=== PATIENT | female | born 1990 | race Asian ===

== ENCOUNTER 2016-11-16 05:52 | Inpatient (IN) | payer OTHER ==
[~2016-11-16] VITALS: Ht 149.9 cm; Wt 69.3 kg
[2016-11-16 06:21] VITALS: BP 125/74; PULSE 80; RESP 18; Ht 149.9 cm; Wt 69.3 kg
[2016-11-16] MEDS ORDERED: FER325 PO (06:25)
[2016-11-16] MEDS ORDERED: PREN1TAB13 PO (06:26)
[2016-11-16] MEDS ORDERED: OXYTOCIN 30 UNITS/LR 500 ML IV PRN ×3 (06:30→22:00)
[2016-11-16] MEDS ORDERED: OXYTOCIN 30 UNITS/LR 500 ML IV SCH ×3 (06:30→16:30)
[2016-11-16] MEDS ORDERED: CARBOPROST 250 MCG INJ IM PRN ×3 (06:30→22:00)
[2016-11-16] MEDS ORDERED: MISOPROSTOL 200 MCG TAB PR PRN ×3 (06:30→22:00)
[2016-11-16] MEDS ORDERED: ACETAMINOPHEN/CODEINE #3 TAB PO PRN (06:30)
[2016-11-16] MEDS ORDERED: IBUPROFEN 600 MG TAB PO PRN (06:30)
[2016-11-16] MEDS ORDERED: AMPICILLIN 2 GM/NS (PMX) 100 ML IV ONE (06:30)
[2016-11-16] MEDS ORDERED: METHYLERGONOVINE 0.2 MG INJ IM PRN ×3 (06:30→22:00)
[2016-11-16] MEDS ORDERED: BUTORPHANOL 2 MG INJ IV PRN (06:30)
[2016-11-16] MEDS ORDERED: LIDOCAINE 1% (MPF) 30 ML INJ INJ PRN (06:30)
[2016-11-16] MEDS ORDERED: LACTATED RINGER'S 1,000 ML IV PRN (07:00)
--- NOTE | 2016-11-16 07:35 | TRIAGE ---
OB Triage Datetime Report Generated by CPN: 11/16/2016 07:35 Datetime: 11/16/2016 07:14 Assessment Type: Admission Assessment Vaginal Bleeding: None Maternal Assessment Level of Consciousness: Fully Conscious DTR's/Clonus: DTRs 2+; No Clonus Headache: Denies Blurred Vision: No Respiratory Effort: Unlabored; Regular Rhythm; Equal Expansion Breath Sounds, Left: Clear and Equal Breath Sounds, Right: Clear and Equal Nausea/Vomiting: Denies RUQ Epigastric Pain: Denies Lower Extremities Edema: None Upper Extremities Edema: None Facial Edema: None Fall Risk Assessment History of Falling: (0) No Secondary Diagnosis: (0) No Ambulatory Aid: (0) Bedrest/Nurse Assist IV Therapy: (0) No Gait: (0) Normal/Bedrest/Immobile Mental Status: (0) Oriented to Own Ability Fall Score: 0 Fall Risk Score Definition: No Risk: No action required Labor Evaluation Frequency: 2-4 Duration (sec)2399: 50-70 Quality: Moderate Pattern: Normal: <= 5 Contractions in 10 Minutes Resting Tone [place]: Relaxed Heart Rate FHR Baseline Rate: 135 Variability: Moderate 6-25 bpm Accelerations: 15X15 Decelerations: None Category: Category I Pain Assessment Pain Scale: 5 Pain Presence: Intermittent Pain Type: N/A; Contraction Pain Location: Abdomen Pain Goal: 3 Membrane Status: Ruptured Datetime: 11/16/2016 06:37 Membrane Status: Ruptured Datetime: 11/16/2016 06:30 Time of Arrival: 11/16/2016 06:30 EGA: 39.3 Arrived By: Stretcher Datetime: 11/16/2016 06:10 Vaginal Exam Dilatation (cms): 2.0 Effacement (%): 90 Station: -3 Exam By: Antoine Maxwell RN Membrane Status: Ruptured Membranes Rupture Method: Spontaneous Amniotic Fluid Color: Clear Amniotic Fluid Amount: Small Amniotic Fluid Odor: None Vaginal Bleeding: None Pool: Positive Nitrazine: Positive Cervix, Consistency: Soft Cervix, Position: Anterior Datetime: 11/16/2016 05:58 Time of Arrival: 11/16/2016 05:45 EGA: 39.3 Arrived By: Wheelchair Arrived From: Home Chief Complaint: UC's, R/O ROM (Annotations: Data stored by CPN on behalf of user) Movement: Present Vaginal Discharge: Denies Recent Sexual Intercouse: Denies Abdominal Trauma: Not Applicable Patient Complaints: Contractions; Other Initial Plan: ROM+, EFM X2, VE
[2016-11-16] MEDS: LACTATED RINGER'S 1,000 ML IV SCH ×3 (07:52→15:53)
[2016-11-16 08:37] LABS: ADD SCAN DIFF NO
[2016-11-16 08:43] LABS: BASOPHIL # 0.1 10^3/ul (0.0-0.1); BASOPHILS % 0.3 % (0.0-2.0); EOSINOPHILS % 0.1 % (0.0-7.0); HEMATOCRIT 41.3 % (37.0-47.0); HEMOGLOBIN 13.9 g/dl (12.0-16.0); LYMPHOCYTES # 2.1 10^3/ul (0.8-2.9); MEAN CORPUSCULAR HEMOGLOBIN 30.2 pg (29.0-33.0); MEAN CORPUSCULAR HGB CONC 33.7 g/dl (32.0-37.0); MEAN CORPUSCULAR VOLUME 89.6 fl (82.0-101.0); MONOCYTE # 0.7 10^3/ul (0.3-0.9); MONOCYTES % 4.2 % (0.0-11.0); NEUTROPHIL # 14.3 10^3/ul (1.6-7.5); PLATELET COUNT 280 10^3/UL (140-415); RED BLOOD COUNT 4.61 10^6/ul (4.20-5.40); WHITE BLOOD COUNT 17.5 10^3/ul (4.8-10.8)
[2016-11-16 08:56] LABS: INR 0.91; PROTIME 12.3 Sec (12.2-14.2)
[2016-11-16 08:57] LABS: PARTIAL THROMBOPLASTIN TIME 28.3 Sec (25.0-35.0)
[2016-11-16] MEDS ORDERED: CITRIC ACID/SODIUM CITRATE 15 ML CUP ONE (09:48)
[2016-11-16] MEDS ORDERED: ONDANSETRON 4 MG INJ ONE (09:49)
[2016-11-16] MEDS ORDERED: CITRIC ACID/SODIUM CITRATE 15 ML CUP PO ONE (10:00)
[2016-11-16] MEDS ORDERED: ONDANSETRON 4 MG INJ IV STA (10:00)
[2016-11-16] MEDS ORDERED: FENTAnyl 2MCG/ML-ROPIV 0.2% 100 ML ONE (10:04)
[2016-11-16] MEDS ORDERED: AMPICILLIN 1 GM/NS (PMX) 50 ML IV SCH (10:30)
[2016-11-16] MEDS: AMPICILLIN 1 GM/NS (PMX) 50 ML IV SCH ×2 (12:13→16:03)
[2016-11-16] MEDS: FENTAnyl 2MCG/ML-ROPIV 0.2% 100 ML BAG EPI SCH ×2 (15:57→16:04)
[2016-11-16] MEDS ORDERED: DIPHENHYDRAMINE 50 MG INJ IV PRN ×4 (16:00→22:00)
[2016-11-16] MEDS ORDERED: ONDANSETRON 4 MG INJ IV PRN ×4 (16:00→22:00)
[2016-11-16] MEDS ORDERED: HYDROmorphONE 1 MG/ML SYG IV PRN ×4 (16:00→18:30)
[2016-11-16] MEDS ORDERED: NALOXONE (0.4 MG/ML) INJ IV PRN ×3 (16:00→18:30)
[2016-11-16] MEDS ORDERED: CEFAZOLIN 2 GM/50 ML (PMX) 50 ML IV SCH (16:30)
--- NOTE | 2016-11-16 17:03 | HP ---
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 Blood Type: A+ Rubella: immune RPR/VDRL: Negative GBS Status: Positive HBsAG: Negative OB Admission Exam Vital Signs Vital Signs Vital Signs Date Time Temp Pulse Resp B/P Pulse Ox O2 Delivery O2 Flow Rate FiO2 11/16/16 06:21 98.3 80 18 125/74 Physical Exam HEENT: WNL Heart: Rhythm Normal Lungs: Clear, Equal Abdomen: WNL Extremities: Normal Reflexes: Normal Cervical Dilatation: 4cm Station: -3 Membranes: Ruptured Amniotic Fluid: Clear Heart Rate: 130's Accelerations: Accelerations Present Decelerations: No Decelerations Varibility: Moderate Contractions on Admission: < 5 Minutes Apart Intensity: Moderate Last 72 hours Lab Results CBC & BMP 11/16/16 07:40 OB Assessment/Plan Reason for admission: active labor Other Assessment: [id number] with previous section attempted trial labor with protracted labor Plan: Section CAITLIN URBINA MD Nov 16, 2016 17:01
[2016-11-16] MEDS ORDERED: FENTAnyl 50 MCG/ML VIAL ONE (17:06)
[2016-11-16] MEDS ORDERED: PHENYLephrine (100 MCG/ML) 5ML SYG ONE (17:07)
[2016-11-16] MEDS ORDERED: morphine SULFATE/PF (10 MG/10 ML) INJ ONE (17:07)
[2016-11-16] MEDS ORDERED: OXYTOCIN 10 UNIT INJ ONE (17:07)
[2016-11-16] MEDS ORDERED: METOCLOPRAMIDE 10 MG INJ ONE (17:07)
[2016-11-16] MEDS ORDERED: NA BICARBONATE 8.4% 50 ML SYG ONE (17:09)
[2016-11-16] MEDS ORDERED: LIDOCAINE 2% (SDV) 5 ML INJ ONE (17:09)
[2016-11-16] MEDS ORDERED: DEXAMETHASONE 4 MG/ML 1 ML INJ ONE (17:53)
[2016-11-16] MEDS ORDERED: EPHEDrine SULFATE 50 MG/5 ML SYG IV PRN (18:30)
[2016-11-16] MEDS ORDERED: OXYCODONE/ACETAMINOPHEN (5/325) TAB PO PRN ×2 (18:30)
[2016-11-16] MEDS ORDERED: TRIMETHOBENZAMIDE 100 MG/ML VIAL IM PRN (18:30)
[2016-11-16] MEDS ORDERED: LABETALOL HCL 20MG INJ IV PRN (18:30)
[2016-11-16] MEDS ORDERED: FENTAnyl 50 MCG/ML VIAL IV PRN ×3 (18:30)
[2016-11-16] MEDS ORDERED: hydrALAzine 20 MG INJ IV PRN (18:30)
[2016-11-16] MEDS ORDERED: HYDROmorphONE (0.2 MG/ML) 10ML SYG IV PRN ×3 (18:30)
[2016-11-16] MEDS ORDERED: MEPERIDINE 25 MG INJ IV PRN (18:30)
--- NOTE | 2016-11-16 19:14 | OPR ---
DATE OF OPERATION: 11/16/2016 PREOPERATIVE DIAGNOSIS: , 39 weeks 2 days, ruptured membrane, in labor with a previous carlos arean section, attempted trial of labor, protracted labor and repeat. POSTOPERATIVE DIAGNOSIS: , 39 weeks 2 days, ruptured membrane, in labor with a previous ce sarean section, attempted trial of labor, protracted labor and repeat, delivered a normal male infan t, was 8 and 9, 7 pounds 1 ounce. PROCEDURE: Repeat low transverse section. ANESTHESIA: Spinal. ANESTHESIOLOGIST: Dr. Tabares SURGEON: Darlin Garcia MD NETWORK SUPPORT ENGINEER: Makenzie Tilley MD ESTIMATED BLOOD LOSS: Approximately 500 mL. FINAL SPONGE COUNT: Correct. DESCRIPTION OF PROCEDURE: Under proper induction of spinal anesthesia, patient was placed in supine position. Abdominal wall was prepped and draped in usual aseptic manner. A transverse incision wa s made along the previous incisional scar. Scar tissue was excised. The incision was carried down through the subcutaneous tissue to the anterior recti fascia, which was incised transversely in opal th of the incision. Facial flap was created by blunt and sharp dissection of tendinous attachment u pward and downward, and abdominal cavity was entered. Bladder was extremely high and to even the mi d portion of the anterior aspect of uterus, which was released by cutting the visceral peritoneum do wn and pushed down, and the low segment was incised transversely layer by layer, reached the amnioti c membrane which was actually very thin and normal male infant was born from the occiput posterior. The mouth and nose were cleaned and cord was clamped and cut, delayed cut and [facility]. Cord blood was obtained. The placenta was removed. Cavity w as completely explored. Uterus was exteriorized and uterine incision was closed using #1 chromic ca tgut in continuous interlocking manner. On the right side, right aspect of uterine incision was ext ended more like inferolaterally, which was included and closed, and second layer using 0 chromic cat gut with an MH needle. Incisional site was checked after uterus and abdominal cavity was irri gated. On the right aspect, there was a bleeder which was controlled properly with a separate sutur e, 0 chromic catgut. A piece of Surgicel was laid on the uterine incision, and the parietal periton eum was closed using 0 chromic catgut in continuous manner after the sponge count, which was correct . Muscle closed with 0 chromic catgut in continuous manner. Fascia closed with #1 Vicryl in 2 segm ents in continuous manner. Subcutaneous tissue irrigated. This layer was approximated with a 2-0 p román in continuous manner. Skin closed with Insorb. Pressure dressing applied. Estimated blood lo ss approximately 500 mL. The patient withstood procedure well, sent to the recovery room in stable condition. Dictated By: DARLIN CEDENO/HARLEY Conf#: [id number] DID#: [id number] CC: MAKENZIE TILLEY MD;*[facility]*
[2016-11-16] MEDS: KETOROLAC 30 MG INJ IV PRN (19:18)
[2016-11-16 21:00] VITALS: BP 116/66; PULSE 68; RESP 18
[2016-11-16 22:00] VITALS: BP 116/62; PULSE 70; RESP 17
[2016-11-16] MEDS ORDERED: ZOLPIDEM 5 MG TAB PO PRN (22:00)
[2016-11-16] MEDS ORDERED: LANOLIN 7 GM TUBE TOP PRN (22:00)
[2016-11-17] VITALS: BP 116/66; PULSE 68; RESP 18
[2016-11-17] MEDS ORDERED: IBUPROFEN 600 MG TAB PO SCH
[2016-11-17] MEDS: LACTATED RINGER'S 1,000 ML IV SCH ×3 (03:05→19:30)
[2016-11-17 03:30] VITALS: BP 99/50; PULSE 75; RESP 21
[2016-11-17] MEDS: KETOROLAC 30 MG INJ IV PRN ×2 (05:24→12:48)
[2016-11-17] MEDS: IBUPROFEN 600 MG TAB PO SCH ×4 (05:25→18:02)
[2016-11-17 06:52] LABS: ADD SCAN DIFF NO
[2016-11-17 07:00] LABS: BASOPHILS % 0.2 % (0.0-2.0); HEMOGLOBIN 10.5 g/dl (12.0-16.0); LYMPHOCYTES % 8.8 % (15.0-51.0); MEAN CORPUSCULAR HEMOGLOBIN 30.9 pg (29.0-33.0); MEAN CORPUSCULAR HGB CONC 33.9 g/dl (32.0-37.0); MEAN CORPUSCULAR VOLUME 91.2 fl (82.0-101.0); MEAN PLATELET VOLUME 9.9 fl (7.4-10.4); MONOCYTE # 1.1 10^3/ul (0.3-0.9); NEUTROPHIL # 19.2 10^3/ul (1.6-7.5); NEUTROPHILS % 85.3 % (39.0-77.0); PLATELET COUNT 246 10^3/UL (140-415); WHITE BLOOD COUNT 22.5 10^3/ul (4.8-10.8)
[2016-11-17 08:00] VITALS: BP 104/57; PULSE 73; RESP 20
[2016-11-17] MEDS: SENNA/DOCUSATE NA (8.6MG/50MG) TAB PO SCH ×2 (09:05→20:31)
[2016-11-17 12:50] VITALS: BP 104/53; PULSE 78; RESP 18
[2016-11-17 16:13] VITALS: BP 101/57; PULSE 77; RESP 14
[2016-11-17 19:30] VITALS: BP 106/73; PULSE 81; RESP 19
[2016-11-17] MEDS: OXYCODONE/ACETAMINOPHEN (5/325) TAB PO PRN (20:32)
--- NOTE | 2016-11-17 23:07 | PN ---
Date/Time of Note Date/Time of Note DATE: 11/17/16 TIME: 23:05 OB Subjective Subjective Subjective no c/o passing flatus OB Objective Objective Objective vss afebrile abdomen soft wound dry lochia min calfno tenderness OB Assessment/Plan Other Assessment: post RC/S #! stable with leukocytosis Other plan: CBC in am CAITLIN URBINA MD Nov 17, 2016 23:07
[2016-11-18] MEDS: IBUPROFEN 600 MG TAB PO SCH ×5 (00:12→23:54)
[2016-11-18] MEDS: LACTATED RINGER'S 1,000 ML IV SCH (02:00)
[2016-11-18] MEDS: OXYCODONE/ACETAMINOPHEN (5/325) TAB PO PRN ×4 (03:00→21:01)
[2016-11-18 04:00] VITALS: BP 106/69; PULSE 73; RESP 20
[2016-11-18 07:45] LABS: ADD SCAN DIFF NO
[2016-11-18 08:02] LABS: BASOPHILS % 0.2 % (0.0-2.0); EOSINOPHILS # 0.2 10^3/ul (0.0-0.5); EOSINOPHILS % 0.9 % (0.0-7.0); HEMATOCRIT 30.7 % (37.0-47.0); HEMOGLOBIN 10.3 g/dl (12.0-16.0); LYMPHOCYTES # 2.6 10^3/ul (0.8-2.9); LYMPHOCYTES % 15.5 % (15.0-51.0); MEAN CORPUSCULAR HEMOGLOBIN 30.8 pg (29.0-33.0); MEAN CORPUSCULAR HGB CONC 33.6 g/dl (32.0-37.0); MEAN CORPUSCULAR VOLUME 91.9 fl (82.0-101.0); MEAN PLATELET VOLUME 9.7 fl (7.4-10.4); MONOCYTE # 0.9 10^3/ul (0.3-0.9); MONOCYTES % 5.1 % (0.0-11.0); NEUTROPHIL # 13.2 10^3/ul (1.6-7.5); NEUTROPHILS % 77.5 % (39.0-77.0); PLATELET COUNT 261 10^3/UL (140-415); RED BLOOD COUNT 3.34 10^6/ul (4.20-5.40); RED CELL DISTRIBUTION WIDTH 16.9 % (11.5-14.5)
[2016-11-18 08:15] VITALS: BP 100/52; PULSE 77; RESP 17
[2016-11-18] MEDS: SENNA/DOCUSATE NA (8.6MG/50MG) TAB PO SCH ×2 (09:41→21:01)
--- NOTE | 2016-11-18 14:15 | PN ---
Date/Time of Note Date/Time of Note DATE: 11/18/16 TIME: 14:12 OB Subjective Subjective Subjective no c/o tolerating diet no b.m yet OB Objective Objective Objective vss afebrile abdomen soft wound dry lochia min calf neg for tenderness HEENT: WNL Heart: Rhythm Normal Lungs: Clear, Equal Abdomen: WNL Extremities: Normal Reflexes: Normal OB Assessment/Plan Other Assessment: stable prepeat c/s #2 Other plan: discharge home in am CAITLIN URBINA MD Nov 18, 2016 14:15
[2016-11-18 16:36] VITALS: BP 101/53; PULSE 81; RESP 16
[2016-11-18] MEDS ORDERED: NA PHOSPHATE/BIPHOS 133 ML ENEMA PR PRN (19:30)
[2016-11-18 19:45] VITALS: BP 112/64; PULSE 80; RESP 20
[2016-11-19 03:30] VITALS: BP 106/56; PULSE 76; RESP 18
[2016-11-19] MEDS: OXYCODONE/ACETAMINOPHEN (5/325) TAB PO PRN ×2 (03:44→08:54)
[2016-11-19] MEDS: IBUPROFEN 600 MG TAB PO SCH (05:39)
[2016-11-19 07:58] VITALS: BP 102/53; PULSE 69; RESP 20
[2016-11-19] MEDS: SENNA/DOCUSATE NA (8.6MG/50MG) TAB PO SCH (08:53)
[2016-11-19] MEDS ORDERED: DIPHTH/TET/ACEL PERTUSS (ADULT) 0.5 ML VIAL IM* ONE (09:00)
--- NOTE | 2016-11-19 10:34 | DS ---
Date/Time of Note Date/Time of Note DATE: 11/19/16 TIME: 10:33 Obstetrical Discharge Record Final Diagnosis Final Diagnosis: Term delivered Section Section: Repeat Complications Augmentation: No Induction: No Rupture of Membranes: No Condition on Discharge Physical Assessment Last Vitals: vss afebrile Voiding: Yes Bowel Movement: Yes Breast: Soft, non-tender Fundus: Firm Abdomen and Incision: wound dry soft Calf Tenderness: No Patient Condition: Stable CAITLIN URBINA MD Nov 19, 2016 10:34
--- NOTE | 2016-11-19 10:36 | PD.PPDC ---
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 Final Diagnosis: s/p repeat c/s after attempt Condition Patient Condition: Stable Diet Diet: Resume Regular Diet Activity/Restrictions Activity: May Shower Restrictions: No Exercising No Lifting Minimize Stair-climbing No Sexual Activity Nothing in the Vagina No [place] No Tampons, douche Wound/Drain Care Instructions Wound/Drain Care Instructions: Wash with soap and water Keep clean and dry Follow-up Follow-up with Physician: Week/Weeks Return to clinic for PRESS SET UP PERSON Instructions: Fever greater than 101 Chills Worsening abdominal pain Excessive Vaginal Bleeding More than 2 pads per hour Unable to tolerate diet OB Instructions: Breast Tenderness Depression Blurried Vision Headache Surgical Instructions: Incisional Drainage Incisional Redness CAITLIN URBINA MD Nov 19, 2016 10:36
== END 2016-11-19 11:30 | disposition home or self-care (01) | DRG 766 ==
LOC: OBT 05:52 → L-D 05:53 → OBT 06:33 → L-D 17:00 → PP1 21:02
PROVIDERS: ADMIT Obstetrics & Gynecology; ATTEND Obstetrics & Gynecology
PROC: 4A1HX4Z Monitoring of Products of Conception, Cardiac Electrical Activity, External Approach (ICD-10-PCS; 2016-11-16)
PROC: 10D00Z1 Extraction of Products of Conception, Low, Open Approach (ICD-10-PCS; principal; 2016-11-16 17:00)
PROC: 3E0234Z Introduction of Serum, Toxoid and Vaccine into Muscle, Percutaneous Approach (ICD-10-PCS; 2016-11-19)
DX: O63.0 Prolonged first stage (of labor) (principal); O34.211 Maternal care for low transverse scar from previous cesarean delivery; Z3A.39 39 weeks gestation of pregnancy; Z37.0 Single live birth; Z23 Encounter for immunization
CPT/HCPCS: 62319; 84112; 85025; 85610; 85730; 86592; 86850; 86900; 86901; 87340; 90715; 99464; G0463; J0290; J0595; J0690; J1100; J1170; J1885; J2175; J2274; J2370; J2405; J2590; J2765; J3010; J7120

== ENCOUNTER 2018-12-04 08:07 | Inpatient (IN) | payer OTHER ==
[~2018-12-04] VITALS: Ht 152.4 cm; Wt 72.5 kg
[~2018-12-04 08:07] MED LIST: FER325 PO; PREN1TAB13 PO
[2018-12-04 09:11] VITALS: Ht 152.4 cm; Wt 72.5 kg
[2018-12-04 09:22] VITALS: BP 109/55; PULSE 67; RESP 18
[2018-12-04] MEDS ORDERED: MISOPROSTOL 200 MCG TAB PR PRN ×2 (09:30→16:00)
[2018-12-04] MEDS ORDERED: METHYLERGONOVINE 0.2 MG INJ IM PRN ×2 (09:30→16:00)
[2018-12-04] MEDS ORDERED: OXYTOCIN 30 UNITS/LR 500 ML IV PRN ×2 (09:30→16:00)
[2018-12-04] MEDS ORDERED: CARBOPROST 250 MCG INJ IM PRN ×2 (09:30→16:00)
[2018-12-04] MEDS ORDERED: CEFAZOLIN 2 GM/50 ML (PMX) 50 ML IVPB SCH (09:30)
[2018-12-04] MEDS ORDERED: OXYTOCIN 30 UNITS/LR 500 ML IV SCH (09:30)
--- NOTE | 2018-12-04 09:38 | TRIAGE ---
OB Triage Datetime Report Generated by CPN: 12/04/2018 09:37 Datetime: 12/04/2018 09:33 Time of Arrival: 12/04/2018 08:00 EGA: 37.1 Arrived By: Ambulatory Arrived From: Home Chief Complaint: UCS X 2 DAYS Movement: Present Contractions: Regular Time Contractions Began: 12/02/2018 07:00 Contractions: Q 5 Rupture of Membranes: Denies Vaginal Bleeding: None Vaginal Discharge: Denies Recent Sexual Intercouse: Denies Abdominal Trauma: Not Applicable Patient Complaints: Contractions Time Provider Notified: 12/04/2018 09:00 Provider Notified: DR URBINA Initial Plan: EFM,ALL DR URBINA Datetime: 12/04/2018 09:27 Maternal Assessment Level of Consciousness: Keenly Alert, Responsive DTR's/Clonus: DTRs 2+; No Clonus Headache: Denies Blurred Vision: No Respiratory Effort: Unlabored; Regular Rhythm; Equal Expansion Breath Sounds, Left: Clear and Equal Breath Sounds, Right: Clear and Equal Nausea/Vomiting: Denies RUQ Epigastric Pain: Denies Facial Edema: None Temperature Route: Axillary Fall Risk Assessment History of Falling: (0) No Secondary Diagnosis: (0) No Ambulatory Aid: (0) Bedrest/Nurse Assist IV Therapy: (0) No Gait: (0) Normal/Bedrest/Immobile Mental Status: (0) Oriented to Own Ability Fall Score: 0 Fall Risk Score Definition: No Risk: No action required
[2018-12-04] MEDS: LACTATED RINGER'S 1,000 ML IV SCH ×2 (09:58→11:14)
[2018-12-04] MEDS ORDERED: EPHEDrine 25 MG/5 ML SYG ONE (11:00)
--- NOTE | 2018-12-04 11:11 | HP ---
Date/Time of Note Date/Time of Note DATE: 12/04/18 TIME: 11:02 OB - History Hx of Present Free Text/Dictation 28y.o A0 at 37w1d with uc's q5min apart with intact membrane had x2 previous c/s was started on 2nd trimester, no significant problem GBS not known CAT I tracing VE 100/-2 admittd for repeat C/S Chief Complaint: uc's Estimated Due Date: Dec 24, 2018 : 3 Para: 2 Spontaneous : 0 Therapeutic : 0 Care: Good Care Ultrasounds: Normal mid trimester US Obstetrical Complications: None Past Family/Social History * Past Medical, Surgical, Family and Obstetric Histories reviewed from chart. Blood Type: A+ Rubella: immune RPR/VDRL: Negative GBS Status: Unknown HBsAG: Negative OB Admission Exam Vital Signs Vital Signs Vital Signs Date Temp Pulse Resp B/P (MAP) Pulse Ox O2 O2 Flow FiO2 Time Delivery Rate 12/04/18 98.0 67 18 109/55 Room Air 09:22 (73) Physical Exam HEENT: WNL Heart: Rhythm Normal Lungs: Clear, Equal Abdomen: WNL Extremities: Normal Reflexes: Normal Cervical Dilatation: 1cm Effacement: 100% Station: -2 Membranes: Intact Amniotic Fluid: Unevaluable Heart Rate: 130's Accelerations: Accelerations Present Decelerations: No Decelerations Varibility: Moderate Contractions on Admission: < 5 Minutes Apart Intensity: Moderate Last 72 hours Lab Results CBC & BMP 12/04/18 09:35 OB Assessment/Plan Other Assessment: 37w1d with x2 previous C/S in labor Plan: Section CAITLIN URBINA MD Dec 04, 2018 11:11
[2018-12-04] MEDS ORDERED: METOCLOPRAMIDE 10 MG INJ ONE (11:21)
[2018-12-04] MEDS ORDERED: ONDANSETRON 4 MG INJ ONE (11:21)
[2018-12-04] MEDS ORDERED: morphine SULFATE/PF (10 MG/10 ML) INJ ONE (11:21)
[2018-12-04] MEDS ORDERED: OXYTOCIN 10 UNIT INJ ONE ×2 (11:22→12:13)
[2018-12-04] MEDS ORDERED: AZITHROMYCIN 500MG/NS (PMX) 250 ML ONE (11:23)
[2018-12-04] MEDS ORDERED: MIDAZOLAM 1 MG/ML 2 ML INJ ONE (11:27)
[2018-12-04] MEDS ORDERED: AZITHROMYCIN 500MG/NS (PMX) 250 ML IV ONE (11:30)
--- NOTE | 2018-12-04 11:48 | PREAC ---
Date/Time of Note Date/Time of Note DATE: 12/04/18 TIME: 11:44 Anesthesia Eval and Record Evaluation Time Pre-Procedure Interview DATE: 12/04/18 TIME: 10:51 Age 28 Sex female NPO: 8 hrs Preoperative diagnosis iup @ 37 wks., , labor, prev. c/s x 2 Planned procedure repeat c/s Past Medical History Past Medical History: Includes : : (3), Para: (2), Gestational age: (37 wks.) Surgery & Anesthesia Issues No known issue (37 wks.) Meds Anticoagulation: No Beta Yoli within 24 hr: No Reason Beta Yoli not given: Pt. not on B-Yoli Reported Medications Pnv95/Ferrous Fumarate/FA ( Vitamins Tablet) 1 Each Tablet, 1 EACH PO, TAB 11/16/16 Ferrous Sulfate* (Ferrous Sulfate*) 325 Mg Tabec, 325 MG PO DAILY, TAB 11/16/16 Current Medications Lactated Ringer's 1,000 ml @ 125 mls/hr Q8H IV Last administered on 12/04/18at 09:58; Admin Dose 125 MLS/HR; Start 12/04/18 at 09:24 Cefazolin Sodium/ Dextrose 50 ml @ 100 mls/hr ONCE IVPB ; Start 12/04/18 at 09:30 Oxytocin/Lactated Ringer's 500 ml @ 125 mls/hr POST IV ; Start 12/04/18 at 09:30 Oxytocin/Lactated Ringer's 500 ml @ 0 mls/hr ONCE PRN IV .VAGINAL BLEEDING; Start 12/04/18 at 09:30 Methylergonovine Maleate (Methergine) 0.2 mg ONCE PRN IM .VAGINAL BLEEDING; Start 12/04/18 at 09:30 Carboprost Tromethamine (Hemabate) 250 mcg ONCE PRN IM .VAGINAL BLEEDING; Start 12/04/18 at 09:30 Misoprostol (Cytotec) 1,000 mcg ONCE PRN AL .VAGINAL BLEEDING; Start 12/04/18 at 09:30 Azithromycin 250 ml @ 250 mls/hr ONCE ONCE IV ; Start 12/04/18 at 11:30; Stop 12/04/18 at 12:29 Meds reviewed: Yes Allergies Coded Allergies: No Known Drug Allergies (Verified Allergy, Unknown, 11/16/16) Allergies Reviewed: Yes Labs/Studies Labs Reviewed: Reviewed by anesthesiologist Result Diagram: 12/04/18 0935 Laboratory Tests 12/04/18 09:35 Blood Bank Test 12/04/18 09:35 Antibody Screen NEGATIVE Blood Type A POSITIVE Rh Immune Globulin Candidate NO test: Positive Studies: ECG (n/a), CXR (n/a) Pre-procedure Exam Last vitals Vital Signs Date Temp Pulse Resp B/P (MAP) Pulse Ox O2 O2 Flow FiO2 Time Delivery Rate 12/04/18 98.0 67 18 109/55 Room Air 09:22 (73) Airway: Adequate mouth opening, Adequate thyromental dist Mallampati: Mallampati II Teeth: Normal Lung: Normal Heart: Normal ASA Physical Status ASA physical status: 2 Emergency: E Planned Anesthetic General/MAC: MAC Neuraxial: Spinal Planned Pain Management Sub-arachniod narcotics, Parenteral pain med, Local by surgeon Pre-operative Attestations Prior to commencing anesthesia and surgery, the patient was re-evaluated, there was verification of: *The patient's identity *The results of appropriate recent lab work and preoperative vital signs *The above evaluation not changing prior to induction *Anesthetic plan, risk benefits, alternative and complications discussed with patient/family; questions answered; patient/family understands, accepts and wishes to proceed. Staff Command And Control Officer used LEMUEL BRIONES MD Dec 04, 2018 11:48
[2018-12-04] MEDS ORDERED: LACTATED RINGER'S 1,000 ML IV ONE (11:50)
[2018-12-04] MEDS ORDERED: NALBUPHINE HCL (10 MG/1 ML) INJ IV PRN (12:00)
[2018-12-04] MEDS ORDERED: DIPHENHYDRAMINE 50 MG INJ IV PRN ×4 (12:00→16:00)
[2018-12-04] MEDS ORDERED: ZOLPIDEM 5 MG TAB PO PRN ×2 (12:00→16:00)
[2018-12-04] MEDS ORDERED: MEPERIDINE 25 MG INJ IV PRN (12:00)
[2018-12-04] MEDS ORDERED: ONDANSETRON 4 MG INJ IV PRN ×2 (12:00→16:00)
[2018-12-04] MEDS ORDERED: NALOXONE (0.4 MG/ML) INJ IV PRN ×2 (12:00)
[2018-12-04] MEDS ORDERED: HYDROmorphONE 0.5 MG/0.5 ML SYG IV PRN ×2 (12:00)
[2018-12-04] MEDS ORDERED: MIDAZOLAM 1 MG/ML 2 ML INJ IV PRN (12:00)
--- NOTE | 2018-12-04 12:49 | OPPN ---
Date/Time of Note Date/Time of Note DATE: 12/04/18 TIME: 12:44 Operative Report Planned Procedure Procedure date Dec 04, 2018 Procedure(s) repea low transverse section Performed by see signature line Home Help Aide: LEN TRINIDAD MD 2nd Home Help Aide none Anesthesiologist: LEMUEL BRIONES MD Pre-procedure diagnosis IUP 37w1d x2 previous c/s in LABOR [id number] Anesthesia Type: Khmfp8l spinal Post-Procedure Post-procedure diagnosis same as above delivered normal female Findings Live Baby [f], Apgars [8] and [9], weight [], position [ROT], [Vx] presentation []x1 nuchal cordcord. Estimated Blood Loss: 400 - 500 mls Specimen(s) none Grafts/Implant(s) none Complication(s) none CAITLIN URBINA MD Dec 04, 2018 12:49
[2018-12-04] MEDS: KETOROLAC 30 MG INJ IV PRN ×2 (13:14→22:19)
--- NOTE | 2018-12-04 13:58 | PAC ---
Date/Time of Note Date/Time of Note DATE: 12/04/18 TIME: 13:58 Post-Anesthesia Notes Post-Anesthesia Note Last documented vital signs Vital Signs Date Temp Pulse Resp B/P (MAP) Pulse Ox O2 O2 Flow FiO2 Time Delivery Rate 12/04/18 98.0 67 18 109/55 Room Air 09:22 (73) Activity: WNL Respiratory function: WNL Cardiovascular function: WNL Mental status: Baseline Pain reasonably controlled: Yes Hydration appropriate: Yes Nausea/Vomiting absent: Yes LEMUEL BRIONES MD Dec 04, 2018 13:58
[2018-12-04 15:50] VITALS: BP 107/45; PULSE 76; RESP 18
[2018-12-04] MEDS ORDERED: LACTATED RINGER'S 1,000 ML IV SCH (15:52)
[2018-12-04] MEDS ORDERED: LANOLIN HPA 1 PKT TOP PRN (16:00)
[2018-12-04 16:16] VITALS: BP 113/50; PULSE 80; RESP 18
[2018-12-04 17:48] VITALS: BP 112/53; PULSE 88; RESP 18
[2018-12-04 20:00] VITALS: BP 106/43; PULSE 82; RESP 16
[2018-12-04] MEDS: SENNA/DOCUSATE NA (8.6MG/50MG) TAB PO SCH (21:00)
[2018-12-05] VITALS: BP 101/50; PULSE 73; RESP 18
[2018-12-05] MEDS: LACTATED RINGER'S 1,000 ML IV SCH ×3 (02:12→14:12)
[2018-12-05 04:00] VITALS: BP 98/49; PULSE 70; RESP 20
--- NOTE | 2018-12-05 06:06 | OPPN ---
Date/Time of Note Date/Time of Note DATE: 12/05/18 TIME: 06:05 Anesthesia Follow up Anesthesia Follow up Last documented vital signs Vital Signs Date Temp Pulse Resp B/P (MAP) Pulse Ox O2 O2 Flow FiO2 Time Delivery Rate 12/05/18 98.2 70 20 98/49 (65) 92 Room Air 04:00 Respiratory function: WNL Cardiovascular function: WNL Comments S: pt. is pod #1. min. bt pain. min. need for bt pain meds, ie. nsaids/opiates. ambulating. min. n/v O: vss, afeb. A: min. bt pain sec. to it mso4. P: no complications. LEMUEL BRIONES MD Dec 05, 2018 06:06
--- NOTE | 2018-12-05 07:43 | QN ---
Documentation Comment passing flatus VSS afebrile abdomen soft wound dry lochia min calf neg for tenderness still have cristina catheter A s/p R C/S #1 P as ordered CAITLIN URBINA MD Dec 05, 2018 07:43
[2018-12-05] MEDS: KETOROLAC 30 MG INJ IV PRN (07:46)
[2018-12-05 08:00] VITALS: BP 97/55; PULSE 74; RESP 18
[2018-12-05] MEDS: SENNA/DOCUSATE NA (8.6MG/50MG) TAB PO SCH ×2 (08:36→20:11)
[2018-12-05] MEDS: IBUPROFEN 600 MG TAB PO SCH ×2 (11:30→18:20)
[2018-12-05] MEDS: OXYCODONE/ACETAMINOPHEN (5/325) TAB PO PRN ×3 (13:37→20:06)
[2018-12-05 16:57] VITALS: BP 95/52; PULSE 71; RESP 18
[2018-12-05 20:00] VITALS: BP 104/54; PULSE 70; RESP 20
[2018-12-06] MEDS: IBUPROFEN 600 MG TAB PO SCH ×5 (00:10→23:53)
[2018-12-06] MEDS: LACTATED RINGER'S 1,000 ML IV SCH ×3 (02:30→18:30)
[2018-12-06 04:00] VITALS: BP 106/67; PULSE 66; RESP 18
[2018-12-06 08:00] VITALS: BP 104/56; PULSE 72; RESP 22
--- NOTE | 2018-12-06 08:22 | OPR ---
DATE OF OPERATION: 12/04/2018 PREOPERATIVE DIAGNOSIS: , 37 weeks 1 day, with 2 previous sections, in labor. POSTOPERATIVE DIAGNOSES: 1. , 37 weeks 1 day, with 2 previous sections, in labor. 2. Normal , 8 and 9. OPERATION PERFORMED: Repeat low transverse section. ANESTHESIA: Spinal. ANESTHESIOLOGIST: . SURGEON: Darlin Garcia MD ASSISTANT COUNTY ATTORNEY: Len Das MD ESTIMATED BLOOD LOSS: 500 mL. PROCEDURE: Under proper induction of spinal anesthesia, the patient was placed in the frog position. Aguirre catheter was introduced under sterile condition and repositioned to supine. Abdominal wall w as prepped and draped in usual aseptic manner. A transverse incision was made along the previous inc isional scar. Scar tissue was excised. Incision carried down through the subcutaneous tissue to the anterior recti fascia which was incised transversely in length of the incision. Fascial flap was cr eated by blunt and sharp dissection of tendinous attachment cephalad and 2 rectus muscles split in th e midline and peritoneal cavity was entered. The low portion of the uterus was exposed. Lower segme nt was extremely thin. Bladder was somehow pulled up higher and a transverse incision was made above the uterovesical reflection away from the bladder transversely and reached the amniotic membrane, wh ich was ruptured and revealed clear amniotic fluid, incision was extended bilaterally with the bandag e scissors. A normal was born from the right occiput transverse position. Mouth and no se were cleaned and cord was delayed clamped and cut and handed to the respiratory care personnel for further care. Cord blood was obtained. The placenta was removed manually. Uterus was exteriorized . Cavity was completely explored and incision was closed using #1 chromic catgut in continuous inter locking manner and second layer using #0 chromic catgut in continuous manner. The incision appeared to be dry and this was inserted into the peritoneal cavity and the incisional site was rechecked for the bleeder, which was intact. The abdominal cavity was irrigated. All the sponge counts were corre ct. Parietal peritoneum was closed using 0 chromic catgut in continuous manner and muscle closed wit h 0 chromic catgut in continuous manner. The fascia closed with #1 Vicryl in continuous intermittent interlocking manner in 2 segments. The subcutaneous tissue was irrigated with water. This layer wa s closed with 2-0 plain after adequate hemostasis was secured. The skin closed with a 3-0 Monocryl i n subcuticular manner. The Steri-Strips were applied. A pressure dressing applied. Estimated blood loss approximately 500 mL. Urine output approximately 100 mL, which was clear. The patient was sen t to the recovery room in stable condition. Dictated By: DARLIN CEDENO/HARLEY Conf#: [id number] DID#: [id number] CC: LEN DAS MD;*End[facility]*
[2018-12-06] MEDS: SENNA/DOCUSATE NA (8.6MG/50MG) TAB PO SCH ×2 (08:25→22:11)
[2018-12-06] MEDS: OXYCODONE/ACETAMINOPHEN (5/325) TAB PO PRN ×3 (08:26→22:17)
[2018-12-06 16:00] VITALS: BP 112/58; PULSE 68; RESP 18
[2018-12-06 20:00] VITALS: BP 126/62; PULSE 68; RESP 18
[2018-12-07] MEDS: LACTATED RINGER'S 1,000 ML IV SCH (02:30)
[2018-12-07 04:00] VITALS: BP 110/71; PULSE 62; RESP 20
--- NOTE | 2018-12-07 04:08 | QN ---
Documentation Comment late entry for service rendered on 12/06 2199 no b.m yet not ambulating well vss afebrile fundus firm lochia min calf neg for tenderness A stable post RC/S#2 P as ordered CAITLIN URBINA MD Dec 07, 2018 04:08
[2018-12-07] MEDS: IBUPROFEN 600 MG TAB PO SCH ×3 (06:14→18:49)
[2018-12-07 07:45] VITALS: BP 116/57; PULSE 60; RESP 18
[2018-12-07] MEDS: SENNA/DOCUSATE NA (8.6MG/50MG) TAB PO SCH (08:39)
[2018-12-07] MEDS ORDERED: DIPHTH/TET/ACEL PERTUSS (ADULT) 0.5 ML VIAL IM* ONE (09:00)
[2018-12-07] MEDS: OXYCODONE/ACETAMINOPHEN (5/325) TAB PO PRN (16:51)
--- NOTE | 2018-12-07 18:28 | PD.PPDC ---
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 [id number] Final Diagnosis: Komcr9p s/p repeat c/s Condition Iolco8Dh Patient Condition: Alwxl7y Stable Diet Rihjn6Au Diet: Bnngn6x Resume Regular Diet Activity/Restrictions Ascqj5Pg Activity: Mpkcm2o May Shower [id number] Restrictions: Edbrc1x No Exercising No Lifting Minimize Stair-climbing No Sexual Activity Nothing in the Vagina No [place] No Tampons, douche Wound/Drain Care Instructions [id number] Wound/Drain Care Instructions: [id number] Wash with soap and water Keep clean and dry Follow-up Follow-up with Physician: 2, Week/Weeks Return to clinic for Aboyh7Ba 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
--- NOTE | 2018-12-07 18:31 | DS ---
Date/Time of Note Date/Time of Note DATE: 12/07/18 TIME: 18:30 Obstetrical Discharge Record Final Diagnosis Final Diagnosis: Term delivered Section Section: Repeat Complications Augmentation: No Induction: No Rupture of Membranes: No Condition on Discharge Physical Assessment Last Vitals: vss afebrile Voiding: Yes Bowel Movement: Yes Breast: Soft, non-tender Fundus: Firm Calf Tenderness: No Patient Condition: Stable CAITLIN URBINA MD Dec 07, 2018 18:31
[2018-12-07 19:30] VITALS: BP 114/61; PULSE 70; RESP 18
--- NOTE | 2018-12-08 20:42 | DELSUM ---
Delivery Summary A-C Datetime Report Generated by CPN: 12/08/2018 20:42 DELIVERY PERSONNEL Teletypesetter Operator: Mingounnemiliano, Phoebe MATERNAL INFORMATION Delivery Anesthesia: Spinal Medications in Delivery: see anesthesia Delivery QBL (ml): 500 Placenta Cultured: No Maternal Complications: Other Other Maternal Complications: previous section in labor LABOR SUMMARY EDC: 12/24/2018 00:00 No. Babies in Womb: 1 Attempted: No Labor Anesthesia: None LABOR INFORMATION Reason for Induction: Not Applicable Onset of Labor: 12/03/2018 18:00 Group B Beta Strep: Done, Result Unknown Antibiotics # of Doses: 2 Antibiotics Time of Last Dose: 12/04/2018 11:24 Steroids Given: None Reason Steroids Not Administered: Not Applicable MEMBRANES Membranes Rupture Method: Artificial Rupture of Membranes: 12/04/2018 11:25 Length of Rupture (hr): 0.00 Amniotic Fluid Color: Clear Amniotic Fluid Amount: Moderate Amniotic Fluid Odor: None STAGES OF LABOR Stage 3 hr: 0 Stage 3 min: 1 Total Time in Labor hr: 17 Total Time in Labor min: 26 CSECTION DELIVERY Primary Indication: Repeat Elective CSection Urgency: Non Elective CSection Incidence: Repeat Labor: Labor Elective: Nonelective CSection Incision: Lower Uterine Transverse BABY A INFORMATION Delivery Date/Time: 12/04/2018 11:25 Method of Delivery: Born in Route : No : N/A Forceps: N/A Vacuum Extraction: N/A Shoulder Dystocia : N/A SHOULDER DYSTOCIA BABY A Delivery Date/Time: 12/04/2018 11:25 PRESENTATION/POSITION BABY A Presentation: Cephalic Cephalic Presentation: Vertex Vertex Position: Left Occipital Anterior Breech Presentation: N/A PLACENTA INFORMATION BABY A Placenta Delivery Time : 12/04/2018 11:26 Placenta Method of Delivery: Manual Removal Placenta Status: Delivered SCORES BABY A Heart Rate 1 min: >100 bpm Resp Effort 1 min: Good Cry Reflex Irritability 1 min: Cough/Sneeze/Pulls Away Muscle Tone 1 min: Active Motion Color 1 min: Body [place], Extremit Blue Resuscitation Effort 1 min: Tactile Stimulation SCORE 1 MIN: 9 Heart Rate 5 min: >100 bpm Resp Effort 5 min: Good Cry Reflex Irritability 5 min: Cough/Sneeze/Pulls Away Muscle Tone 5 min: Active Motion Color 5 min: Body [facility], Extremit Blue Resuscitation Effort 5 min: Tactile Stimulation SCORE 5 MIN: 9 INFANT INFORMATION BABY A Gestational Age at Delivery: 37.1 Gestational Status: Early Term- 37- 38.6 Weeks Outcome : Liveborn, with signs of life Condition : Stable Infant Sex: Female IDENTIFICATION/MEDS BABY A ID Band Number: [id number] ID Band Location: Right Leg; Right Arm Sensor Applied: Yes Sensor Number: [id number] Sensor Location : Cord Clamp Vitamin K Given : Not Given Erythromycin Given: Not Given WEIGHT/LENGTH BABY A Infant Birthweight (gm): 3260 Infant Weight (lb): 7 Weight (oz): 3 Length (in): 19.00 Length (cm): 48.26 CORD INFORMATION BABY A No. Cord Vessels: 3 Nuchal Cord : Around Neck x1, Loose Cord Blood Taken: Yes Banking/Donate Info: NO Suction: Mouth; Nose ASSESSMENT BABY A Complications: None Physical Findings at Delivery: Within Normal Limits Respirations: Appears Normal Fitness Teacher/ALS Called : No Infant Care By: Cam guerin Transferred To: Remains with Mother
== END 2018-12-07 20:20 | disposition home or self-care (01) | DRG 788 ==
LOC: OBT 08:07 → L-D 08:07 → OBT 09:20 → L-D 09:20 → PP1 15:57
PROVIDERS: ADMIT Obstetrics & Gynecology; ATTEND Obstetrics & Gynecology
PROC: 10D00Z1 Extraction of Products of Conception, Low, Open Approach (ICD-10-PCS; principal; 2018-12-04 12:00)
DX: O34.211 Maternal care for low transverse scar from previous cesarean delivery (principal); Z3A.37 37 weeks gestation of pregnancy; Z37.0 Single live birth
CPT/HCPCS: 85025; 85610; 85730; 86592; 86850; 86900; 86901; 87340; 90715; 99464; G0463; J0456; J0690; J1885; J2250; J2274; J2405; J2590; J2765; J7120